=== PATIENT | male | born 1950 | race Caucasian/White ===

== ENCOUNTER 2017-04-24 16:39 | Emergency (ER) | payer OTHER ==
[~2017-04-24] VITALS: Ht 177.8 cm; Wt 36.3 kg
[2017-04-24 16:43] VITALS: Ht 177.8 cm; Wt 36.3 kg
== END 2017-04-24 17:08 | disposition expired ==
LOC: ED 16:39
DX: I46.9 Cardiac arrest, cause unspecified (principal)
CPT/HCPCS: 82962; 83880; J7030